=== PATIENT | female | born 2000 | race Caucasian/White ===

== ENCOUNTER 2025-08-29 10:21 | Outpatient (OUT) | payer BC, MEDICAID, SELFPAY ==
--- OUTSIDE RECORDS SUMMARY | 2025-08-25 05:29 | XMS_ITS | Continuity of Care Document ---
Author Organization [facility] Address [address] [place] [address] Phone Care Team Providers Care Mobile Device Developer Name Role Phone Carrillomilo Kurtis PIERSON Unavailable Unavailable Allergies, Adverse Reactions, Alerts Substance Reaction Status Criticality No Known Allergies Active No Inform ation Medications Medication Instructions Dosage Effective Dates (start - stop) Status Comments cephalexin 500 mg capsule 1 capsule four times daily till gone - Active levothyroxine 50 mcg tablet take 1 tablet by oral route every day for thyroid replacement - Active Procedures Procedure Date Intraoral-periapical 1st Film Bitewig-single Film Oral Hygiene Instruction Limited Oral Eval IMMUNIZATION ADMIN FLU VACCINE NO PRESERV 3 & > PREV VISIT, EST, AGE 18-39 Bp scrn perf rec interval LDL-C <100 MG/DL DIAST BP < 80 MM HG SYST BP < 130 MM HG MED LIST DOCD IN [facility] RVW MEDS BY RX/DR IN [facility] OFFICE/OUTPATIENT VISIT, EST Bp scrn perf rec interval LDL-C <100 MG/DL DIAST BP < 80 MM HG SYST BP < 130 MM HG MED LIST DOCD IN [facility] RVW MEDS BY RX/DR IN [facility] TOBACCO NON-USER OFFICE/OUTPATIENT VISIT, EST Bp scrn perf rec interval LDL-C <100 MG/DL DIAST BP < 80 MM HG SYST BP < 130 MM HG MED LIST DOCD IN [facility] RVW MEDS BY RX/DR IN [facility] TOBACCO NON-USER Pt inelig neg scrn depres OFFICE/OUTPATIENT VISIT, EST Bp scrn perf rec interval DIAST BP < 80 MM HG SYST BP < 130 MM HG MED LIST DOCD IN [facility] RVW MEDS BY RX/DR IN [facility] TOBACCO NON-USER ROUTINE VENIPUNCTURE URINE TEST OFFICE/OUTPATIENT VISIT, EST OFFICE/OUTPATIENT VISIT, EST COVID-19 Antigen Test COVID-19 Antigen Test Prophylaxis Adult Topical Application Of Fluoride Varnish Nutrit Couns For Control Of [place] [facility] [place] Oral Hygiene Instruction Low Risk TB Read TB INTRADERMAL TEST IMMUNIZATION ADMIN FLU VACCINE NO PRESERV 3 & > Covid-19 Vaccine Administration 024 Covid-19 Vaccine, 50 Mcg Moderna 12y Plu s Intraoral-complete Series (bw) Oral Hygiene Instruction Comp Oral Eval New/estab Patient 2023 Covid-19 Vaccine Administration 024 Covid-19 Vaccine, 50 Mcg Moderna 12y Plu s Advance Directives Directive Yes / No Effective Date File Name No Information Encounters Encounter Description Practice Location Reason(s) For Visit Diagnoses Date Provider Providers Copied on Encounter [facility], [address] [place] [address], [id number] , [place] tel: [phone] Dental Clinic Encounter for screening for dental disorders 5 Sayra Hull. [address], [place], [id number] , [place]. tel: [phone] [facility], [address] [place] [address], [id number] , [place] tel: [phone] [facility] No Information 5 Melecio Dudley. [address], [place], [id number] , [place]. tel: [phone] PREV VISIT, [facility], AGE 18-39 [facility], [address] [place] [address], [id number] , [place] tel: [phone] [facility] Office visit (chief complaint) Annual physical examAcute URI 0- 5 Eliezer Martin. [address] [place] [address], [id number] , [place]. tel: [phone] OFFICE/OUTPA TIENT VISIT, [facility], [address] [place] [address], [id number] , [place] tel: [phone] [facility] Office Visit (chief complaint) Body mass index [BMI] 26.0-26.9, adultHypothyroidism, unspecifiedAcute mastitis 8 5 Plank DO Nicholas. [address] [place] [address], [id number] , [place]. tel: [phone] OFFICE/OUTPA TIENT VISIT, [facility], [address] [place] [address], [id number] , [place] tel: [phone] [facility] Follow Up (chief complaint) Hypothyroidism, unspecifiedBody mass index [BMI] 26.0-26.9, adult 3 5 Plank DO Nicholas. [address], [place], [id number] , [place]. tel: [phone] [facility], [address] [place] [address], [id number] , [place] tel: [phone] [facility] No Information Sep-2 5 Plank DO Nicholas. [address], [place], [id number] , [place]. tel: [phone] OFFICE/OUTPA TIENT VISIT, [facility], [address] [place] [address], [id number] , [place] tel: [phone] [facility] Follow up (chief complaint) Body mass index [BMI] 26.0-26.9, adultFeeling off-colorHearing difficulty, unspecified lateralityVisual disturbance Sep-2 5 Plank DO Nicholas. [address] [place] [address], [id number] , [place]. tel: [phone] OFFICE/OUTPA TIENT VISIT, [facility], [address] [place] [address], [id number] , [place] tel: [phone] [facility] Problem Visit (chief complaint) Body mass index [BMI] 26.0-26.9, adultNear syncopeChest pressureLightheaded Sep- 5 Darnell Harding. [address] [place] [address], [id number], [place]. tel: [phone] OFFICE/OUTPA TIENT VISIT, [facility], [address] [place] [address], [id number] , [place] tel:+ [phone] [facility] Sick visit (chief complaint)U [place] (chief complaint) Acute URIBody mass index [BMI] 25.0-25.9, adult Aug-0 5 Americo Haque. [address] [place] [address], [id number] , [place]. tel: [phone] [facility], [address] [place] [address], [id number] , [place] tel:+ [phone] [facility] Encounter for screening for COVID-19 5 Visckim Dudley. [address], [place], [id number] , [place]. tel: [phone] [facility], [address], [place], [id number] , [place] tel: [phone] Dental [facility] [place] (chief complaint) Encounter for screening for dental disorders 5 Lazo DDS Yixue. [address] [place], [address], [place]. tel: [phone] [facility], [address], [place], [id number] , [place] tel: [phone] [facility] No Information 5 Melecio Dudley. [address], [place], [id number] , [place]. tel: [phone] [facility], [address], [place], [id number] , [place] tel: [phone] [facility] Encounter for screening for respiratory tuberculosis 5 Melecio Dudley. [address], [place], [id number] , [place]. tel: [phone] [facility], [address], [place], [id number] , [place] tel: [phone] [facility] No Information 4 Melecio Dudley. [address], [place], [id number] , [place]. tel: [phone] [facility], [address], [place], [id number] , [place] tel: [phone] Dental Clinic dn (chief complaint) Encounter for screening for dental disorders 4 Lazo DDS Yixue. [address] [place], [address], [place]. tel: [phone] [facility], [address], [place], [id number] , [place] tel: [phone] [facility] Pre employment labs (chief complaint) No Information Melecio Dudley. [address] [place] [address], [place], [place], [id number] , [place]. tel: [phone] Family History Family Member Type Diagnosis Age At Onset No Information Immunizations Vaccine Date Status Comments Fluarix/Flulaval administered Source: New Immunization Record Fluarix/Flulaval administered Source: New Immunization Record Spikevax 12y+ administered Source: New Im munization Record Spikevax 12y+ administered Source: New Im munization Record COVID-19, mRNA, LNP-S, PF, 1 00 mcg/0.5mL dose or 50 mcg/0.25mL dose administered Source: Other Regist ry COVID-19, mRNA, LNP-S, PF, 1 00 mcg/0.5mL dose or 50 mcg/0.25mL dose administered Source: Other Regist ry Hep A, ped/adol, 2 dose administered Sour ce: Other Registry HPV, quadrivalent administered Source: Ot her Registry Meningococcal MCV4O administered Source: Other Registry meningococcal B, recombinant administered Source: Other Registry Influenza, injectable, MDCK, preservative free, quadrivalent administered Source: Other Registry meningococcal MCV4P administered Source: Other Registry Hep A, ped/adol, 2 dose administered Sour ce: Other Registry HPV, quadrivalent administered Source: Ot her Registry Tdap administered Source: Other R egistry Influenza, seasonal, injectable administe red Source: Other Registry Influenza, seasonal, injectable, preservative free administered Source: Ot her Registry influenza, whole administered Source: Ot er Registry polio, unspecified formulation administer ed Source: Other Registry DTP administered Source: Other R egistry MMR administered Source: Other R egistry pneumococcal, unspecified formulation administered Source: Other Regist ry Hib, unspecified formulation administered Source: Other Registry DTP administered Source: Other R egistry varicella administered Source: Other R egistry pneumococcal conjugate PCV 7 administered Source: Other Registry MMR administered Source: Other R egistry Hib-Hep B administered Source: Other R egistry IPV administered Source: Other R egistry DTaP, unspecified formulation administere d Source: Other Registry IPV administered Source: Other R egistry Hib-Hep B administered Source: Other R egistry DTaP, unspecified formulation administere d Source: Other Registry pneumococcal conjugate PCV 7 administered Source: Other Registry IPV administered Source: Other R egistry Hib-Hep B administered Source: Other R egistry DTaP, unspecified formulation administere d Source: Other Registry pneumococcal conjugate PCV 7 administered Source: Other Registry Payers Payer name Insurance type Covered green party ID Authormarcea tran(s) D [facility] CI [id number] D Hum[employer] Medicaid Dentaquest [facility] [id number] D Medicaid Wrap - [facility] [id number] Humana Medicaid [facility] [id number] [id number] Medicaid Wrap - [facility] [id number] [place] [id number] Self Pay Cap 09 [id number] Social History Type Description Quantity Date Captured Comments Alcohol Use Details No Caffeine Use Details soda Tobacco Use Status Current non-smoker Smoking Status Never smoker Sex Female Sexual Orientation Straight or heterosexual February Gender Identity Female Vital Signs Date / Time: Height Weight BMI Pulse Rate Blood Pressure Temperature Respiratory Rate Body Surface Area Head Circumference Head Circ. Percentile Wt./Fly. Percentile BMI percentile Pulse Ox Inhaled Ox 10:56 AM 65.00 in Chief Complaint And Reason For Visit No Information Reason For Referral Reason For Referral No Information Plan Of Treatment Date Type Action Status Goal Tdap Vaccine. Due on 2024 due Goal Lipid panel. Due on due Goal Unhealthy drug use screening . Due on due Goal Influenza vaccine. Due on Oc due Goal Depression screening. Due on due Goal PRAPARE ASSESSMENT. Due on N due Goal RLP. Due on due Goal Hepatitis C screening. Due o n due Goal PAP. Due on due Goal Tdap due Goal Hepatitis C screening. Due o n due Goal Tdap due Goal Depression screening. Due on due Goal PAP. Due on due Goal Lipid panel. Due on due Goal Influenza vaccine. Due on Oc due Goal RLP. Due on due Goal Tdap Vaccine. Due on 2024 due Goal PRAPARE ASSESSMENT. Due on O due Goal Unhealthy drug use screening . Due on due Goal Depression screening. Due on due Goal Unhealthy drug use screening . Due on due Goal Tdap Vaccine. Due on 2024 due Goal Tdap due Goal Hepatitis C screening. Due o n due Goal PAP. Due on due Goal Lipid panel. Due on due Goal Influenza vaccine. Due on Oc due Goal RLP. Due on due Goal PRAPARE ASSESSMENT. Due on O due Goal Depression screening. Due on due Goal RLP. Due on due Goal Influenza vaccine. Due on Oc due Goal Unhealthy drug use screening . Due on due Goal PAP. Due on due Goal Hepatitis C screening. Due o n due Goal Tdap due Goal Lipid panel. Due on due Goal Tdap Vaccine. Due on 2024 due Goal PRAPARE ASSESSMENT. Due on O due Goal Lifestyle education regardin g diet completed Goal PAP. Due on due Goal Lipid panel. Due on due Goal Depression screening. Due on due Goal Unhealthy drug use screening . Due on due Goal Influenza vaccine. Due on Oc due Goal Tdap Vaccine. Due on 2024 due Goal Hepatitis C screening. Due o n due Goal RLP. Due on due Goal Tdap due Goal PRAPARE ASSESSMENT. Due on O due Goal Lifestyle education regardin g diet completed Goal PRAPARE ASSESSMENT. Due on S due Goal Lipid panel. Due on due Goal Depression screening. Due on due Goal Influenza vaccine. Due on Oc due Goal PAP. Due on due Goal Hepatitis C screening. Due o n due Goal Unhealthy drug use screening . Due on due Goal Tdap Vaccine. Due on 2024 due Goal RLP. Due on due Goal Tdap due Goal Lifestyle education regardin g diet completed Goal Tdap due Goal Unhealthy drug use screening . Due on due Goal Tdap Vaccine. Due on 2024 due Goal Influenza vaccine. Due on Oc due Goal PAP. Due on due Goal RLP. Due on due Goal Depression screening. Due on due Goal Hepatitis C screening. Due o n due Goal PRAPARE ASSESSMENT. Due on S due Goal Lifestyle education regardin g diet completed Goal Influenza vaccine. Due on Oc due Goal Tdap due Goal PAP. Due on due Goal Depression screening. Due on due Goal RLP. Due on due Goal Unhealthy drug use screening . Due on due Goal PRAPARE ASSESSMENT. Due on A due Goal Hepatitis C screening. Due o n due Goal Tdap Vaccine. Due on 2024 due Goal PAP. Due on due Goal PRAPARE ASSESSMENT. Due on A due Goal Depression screening. Due on due Goal Unhealthy drug use screening . Due on due Goal Tdap due Goal RLP. Due on due Goal Influenza vaccine. Due on Oc due Goal Tdap Vaccine. Due on 2024 due Goal Hepatitis C screening. Due o n due Goal Dietary manageme nt education, guidance, and counseling completed Goal Hepatitis C screening. Due o n due Goal Tdap Vaccine. Due on 2024 due Goal Influenza vaccine. Due on Oc due Goal Tdap due Goal PAP. Due on due Goal Unhealthy drug use screening . Due on due Goal PRAPARE ASSESSMENT. Due on due Goal RLP. Due on due Goal Depression screening. Due on due Goal Unhealthy drug use screening . Due on due Goal RLP. Due on due Goal Tdap Vaccine. Due on 2024 due Goal Influenza vaccine. Due on Oc due Goal Tdap due Goal PRAPARE ASSESSMENT. Due on M due Goal Depression screening. Due on due Goal PAP. Due on due Goal Hepatitis C screening. Due o n due Goal Hepatitis C screening. Due o n due Goal Influenza vaccine. Due on Oc due Goal Unhealthy drug use screening . Due on due Goal Depression screening. Due on due Goal Tdap Vaccine. Due on 2024 due Goal PAP. Due on due Goal Tdap due Goal RLP. Due on due Goal PRAPARE ASSESSMENT. Due on A due Goal PAP. Due on due Goal Tdap Vaccine. Due on 2023 due Goal Tdap. Due on due Goal PRAPARE ASSESSMENT. Due on O due Goal Unhealthy drug use screening . Due on due Goal RLP. Due on due Goal Depression screening. Due on due Goal Hepatitis C screening. Due o n due Goal Influenza vaccine. Due on Oc due Goal Influenza vaccine. Due on Au due Goal PRAPARE ASSESSMENT. Due on A due Goal Hepatitis C screening. Due o n due Goal Unhealthy drug use screening . Due on due Goal Tdap. Due on due Goal Tdap Vaccine. Due on 2023 due Goal RLP. Due on due Goal Depression screening. Due on due Goal PAP. Due on due Goal Influenza vaccine. Due on Ma due Goal Hepatitis C screening. Due o n due Goal RLP. Due on due Goal Unhealthy drug use screening . Due on due Goal PAP. Due on due Goal Hep A. Due on du e Goal Tdap Vaccine. Due on 2023 due Goal Tdap. Due on due Goal Depression screening. Due on due Goal PRAPARE ASSESSMENT. Due on M due Appointment Ander Nicole BOOKED Appointment Ander Nicole BOOKED History Of Present Illness Encounter Date Complaint History Of Prese nt Illness Office visit Pt here today taye ramirez for insurance. Pt states does not have [employer] insurance yet, but will be doing open enrollment in August. Collected urine sample for nicotine. Voices no other issues or concerns at this time. -Tatianna.Noted above. PCP Dr. Talbot. Chronic conditions managed.Currently with URI symptoms, managing with OTC medications. 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 Has a dusky skin tone, c/o nausea, weakness, Some breast tenderness d/t trying to stop breast feeding.RWeidmanLPNsome mild bilat breast tenderness,someredness bilat. Follow Up Pt follow up key t. States I still feel lightheadedness but no passing out. I have a history of Thyroid issues in the family. [facility] Follow [facility] Pt went to ED pe r instruction of Obi but waited 5 hours and wasn't seen yet. Still feeling weak with occasional periods that feel like she is going to pass out.[facility] Problem Visit Patient states s he began to get lightheaded, clammy, and felt like fainting around 9 this morning. Patient states she feels weak and is still lightheaded. Patient checked glucose during this period and it was 70, then rechecked and it had increased. Patient is still pumping but no more than typical. Denies other concerns at this time. Patient denies any alcohol, tobacco, drug use.//Phyllis, RNglucose-134 I have reviewed all above information and agree. PCP: Dr. Pavon. Works in [employer]. Woke up feeling ok, then developed headache. Came to work. [place] very weak and like passing out. Overhead called for help at work. Vision went blurry and double vision, hearing went out, mouth went dry, had chest pressure during event [place] like someone was sitting on chest. Was SOB. Had a hard time catching breath. Lips felt weird and states could not talk after said im gonna pass out . Did not lose consciousness. Has happened before very similar presentation, but did lose consciousness at that time, about 2 years ago. Blood sugar in office was 71. Is not diabetic. Healthy. No chronic medical conditions. No Rx medications. . 7 months PP. Denies PPD and anxiety. Staying hydrated and getting enough to eat. Feels getting back to normal now. Feels super light . Feels weak. Not been sick recently. Wearing apple watch. reviewed HR today range 63-120. No cardiac hx. Not on BC. Denies anxiety, depression. Had breakfast and lunch. Has seen black stars earlier. No longer now. Not ill recently. No seizure hx. Juan Jose's mom is Bere Feliciano and both feel comfortable with taking pt to [facility] via private car. --LKastor CNPOrthostatics:3:15 laying 140/92, 64 bpm3:20 pm siting, 142/92, 62 bpm3:25 pm standing 146/84, 70 bpm Sick visit Patient presents for sick visit. Patient was tested for COVID and was negative. Symptoms started Friday, states it hasn't gotten any worse. Scratchy throat, congestion, sinus pressure - HERBERT Ching. URI The symptoms beg an 2 to 3 days ago. The symptoms have remained unchanged. The client presents with cough, fever, headache and pharyngitis. The client does not present with diarrhea, nausea or vomiting. Risk factors include sick contacts (home). The client denies any aggravating factors. The client had a response to medication(s) (decongestant). The client denies any associated symptoms. Additional information: Jaime PICKETT. MIGUEL RIVERA arline nunn Pre employment labs Pre employme nt labs and COVID19 Vaccine.DLoparoRN Functional Status Date Functional Assessmen t No Information Instructions Date Instruction Additional Infor sharlene OTC medications as d iscussedIncrease fluids and diet as tolerated. Call if symptoms worsen or do not improve as expected Take precautions to prevent spread of illness such as wash hands frequently and stay away from other healthy individuals Related to Acute URI Recommend:annual phy sical exams, sooner with concerns or problems- annual vision exam- biannual dental exams-annual womens health exam, mammogram beginning age 40- colon cancer screening beginning age 45- Related to Annual physical exam Giving encouragement to exercise Related to Body mass index [BMI] 26.0-26.9, adult Lifestyle education regarding di et Related to Body mass index [BMI] 26.0-26.9, adult Giving encouragement to exercise Related to Body mass index [BMI] 26.0-26.9, adult Lifestyle education regarding di et Related to Body mass index [BMI] 26.0-26.9, adult Giving encouragement to exercise Related to Body mass index [BMI] 26.0-26.9, adult Lifestyle education regarding di et Related to Body mass index [BMI] 26.0-26.9, adult Giving encouragement to exercise Related to Body mass index [BMI] 26.0-26.9, adult Lifestyle education regarding di et Related to Body mass index [BMI] 26.0-26.9, adult 1. Rest and hydrateP ush fluids2. Medications as instructedcontinue with OTC medications3. Follow up in 1 week if symptoms have not improved4. Seek immediate medical attention for chest pain or shortness of breath.5. Avoid smoking and or cigarette smoke6. bland well balanced diet Related to Acute URI Giving encouragement to exercise Related to Body mass index [BMI] 25.0-25.9, adult Dietary management e ducation, guidance, and counseling Related to Body mass index [BMI] 25.0-25.9, adult Assessments Type Assessment Date No Information Patient Care Teams Name Effective Dates (start - stop) Status Members No Information
--- OUTSIDE RECORDS SUMMARY | 2025-08-29 05:19 | XMS_ITS | Continuity of Care Document ---
Author Organization [facility] Address [address] [place] [address] Phone Care Team Providers Care Nutrition Helper Name Role Phone Jacinto Pavon MD Primary Care Provider Jersey Fairchild DO Attending Provider Jb Christopher DO Emergency Provider [phone] Jacinto Pavon MD Attending Provider Care Teams Patient Care Team Team Status: Active Member Role/Relationship Status Dates Jacinto Pavon MD Primary Care Provider Active Visit Care Team Team Status: Inactive Member Role/Relationship Status Dates Jacinto Pavon MD Primary Care Provider Active S tart: June 08, 2025 End: June 08, 2025Enzo Miranda ProviderActiveStart: June 08, 2025 End: June 08, 2025 Visit Care Team Team Status: Inactive Member Role/Relationship Status Dates Jacinto Pavon MD Primary Care Provider Active S tart: June 08, 2025 End: June 08, 2025Enzo Miranda ProviderActiveStart: June 08, 2025 End: June 08, 2025 Visit Care Team Team Status: Inactive Member Role/Relationship Status Dates Jacinto Pavon MD Primary Care Provider Active S tart: July 11, 2025 End: July 11, 2025Alicia Joyner ProviderActiveStart: July 11, 2025 End: July 11, 2025 Patient Care Team Team Status: Inactive Member Role/Relationship Status Dates Jacinto Pavon MD Primary Care Provider Active S tart: August 29, 2025 End: August 29, 2025Marc Naderer , MDAttending ProviderActiveStart: August 29, 2025 End: August 29, 2025 Chief Complaint and Reason for Visit Chief Complaint Admit Date M25.531 - Pain in right wrist May 1:52pm NEW NX RT WRIST PAIN SCHED AUTH APPROVED June 08, 2025 2:55pm light headed/blurred vision/heavy chest July 11, 2025 3:39pm Well Check August 29, 2025 9:37am Reason for Visit Admit Date De Quervain's tenosynovitis, right Augus t 2024 2:55pm Ganglion cyst of volar aspect of right w rist June 08, 2025 2:55pm Wrist arthropathy June 08, 2025 2: 55pm Adult hypothyroidism August 29, 2025 9:37am Annual physical exam August 29, 2025 9:37am Allergies, Adverse Reactions, Alerts Allergen Type Severity Reaction Last Updated Verified Status No Known Allergies Allergy Unknown August 29, 2025 9:44amYesActive Social History Smoking Status Status Start Date End Date Date of Observa tion Never smoked tobacco (finding) August 29, 2025 9:45am Observation Status Observation Response Date of Response Legal Sex Female (finding) Sex Assigned At [facility] 2001 Problems Active Problems Problem Diagnosis/Recorded Date Onset Date Stat De Quervain's tenosynovitis, right June 08, 2025 2 :33pm Unknown Active Migraine without aura and wi th status migrainosus, not intractable August 25, 2025 11:36am Unknown Acti ve Annual physical exam August 29, 2025 10:02am Unkno wn Active Wrist arthropathy June 28, 2025 9:49am Unknown Active Adult hypothyroidism August 29, 2025 10:02am Unkno wn Active MDD (major depressive disord er), single episode, in full remission August 25, 2025 11:36am Unknown Active Chronic rhinosinusitis August 25, 2025 11:36am Unkn own Active Ganglion cyst of volar aspec t of right wrist June 08, 2025 2:33pm Unknown Active 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 August 25, 2025 11:36am Unknown Active Inactive/Resolved Problems Problem Diagnosis/Recorded Date Onset Date Stat us Acute nasopharyngitis June 28, 2024 8:34am Unkno wn Resolved Medications Medication Status Dose Units Route Directions Qty Days Refills S tart Date Stop Date End Date Reason(s) Instructions Adherence Ondansetron 4 mg tablet,disintegrating Discontinued 4 MG PO Every 8 hours as needed June 27, 2024 11:00pmAugus2024 2:16pmLevothyroxine 50 mcg tablet Qietqb57YXGCSVgdodCawsedvu 10th, 2025 12:00amComplies with drug therapy Acetaminophen (Tylenol) 325 mg ndufliThngus550TTGWPpqle 6 hours as neededJune 07, 2025 11:00pmUnknown Immunizations Immunization Event Date Not Given Reason Dose Number Project Manager Retail Lot Number Reason(s) Given Vaccine Information Statement (VIS) Detail Administration Location COVID-19 mRNA-1273 (Moderna) November 02, [address] [id number] mRNA-1273 (Moderna)November [id number] [place] [address] Ctr Procedures Procedure Date Performed Status XR wrist RT min 3V* June 08, 2025 12:52pm co mpleted Relevant Diagnostic Tests and/or Laboratory Data Laboratory Results Test Collection Date/Time Result Date/Time Result Interpretation Reference Range Result Comment Performing Site Bedside Glucose July 11, 2025 2:55pm July 11, 2025 3:02pm 106 mg/dL Random Glucose Reference Range is dependent on time and content of last meal. Glucose of more than 200 mg/dL in a nonstressed, ambulatory subject supports the diagnosis of Diabetes Mellitus.Point of Care testing Diagnostic Imaging Reports Author Kailash Guevara Peoples HospitalAuthoredAupresbyterian kaseman hospital 2024 7:45pmReportDictated Date/TimeDictated ByStatusRadiology ReportAumountain view regional medical center2024 7:45pmFrancisca De AndaCleveland Clinic [facility] [address] [place] [address] XRay Report Signed Patient: Ander Nicole MR#: [id number] : 2000 Acct:[id number] Age/Sex: 25 / F ADM Date: 5 Loc: [facility] Room: Type: [facility] CLI Attending Dr: Jersey Fairchild DO Copies to: Jersey Fairchild DO~ Ordering Provider: Jersey Fairchild DO Date of Service: 06/08/25 XR/XR wrist RT min 3V*: M25.531 - Pain in right wrist 4 views right wrist plain film COMPARISON: None HISTORY: Right wrist pain. Mass dorsal aspect ACUTE FINDINGS: Suspected old fracture of ulnar styloid. DEGENERATIVE CHANGE: Unremarkable SOFT TISSUE FINDINGS: Dorsal soft tissue prominence. Suspected cystic changes of the lunate. Possibly degenerative JOINT EFFUSION: None POSTOP CHANGES: None BONE MINERALIZATION: Adequate XR/XR wrist RT min 3V* IMPRESSION: Dorsal degenerative changes. Soft tissue swelling dorsally. May be consideration for ganglion cyst. Can be better assessed with MRI of the wrist. Impression dictated by: Kailash Guevara M.D. 06/08/2025 7:48 PM Dictation Location: [facility] Transcribed By: [facility] 06/08/251947 Dictated By: Kailash Guevara DO 06/08/251944 Signed By: <Electronically signed by Kailash Guevara DO in OV> 06/08/251947 Vital Signs Vital Reading Result Reference Range Collection Date/Time Height 65 [in_i] June 08, 2025 2:15ywKtxnzo04.03 kgAugust 2024 2:16pmBMI (Body Mass Index)25.0 kg/x8Zzsryo 2024 2:53usUaaxvq90 [in_i]July 11, 2025 2:38ouFrcpiy06.50 kgSeptember 2024 2:49pmBody Hnvltdbygce11.2 [degF] 97.6-99.0September 2024 2:49pmHeart Rate72 /qlf24-101Xdzkhjzar 2024 2:49pmRespiratory rate18 /edf55-80Vhadpkajg 2024 2:49pmOxygen saturation by Pulse zukehsor770 %95-100September 2024 2:49pmBP Hpypxbci223 mm[Hg] 100-140September 2024 2:49pmBP Srqunukok02 mm[Hg]60-100September 2024 2:12hhGamwpk36 [in_i]August 29, 2025 9:93gtBmcggp39.20 kgNov2024 9:43amBody Egbmievqgky64.5 [degF]97.6-99.0August 29, 2025 9:43amHeart Rate76 /pia15-995BlxvrsibAugust 29, 2025 9:43amRespiratory rate20 /srh90-79YgufvrouAugust 29, 2025 9:43amOxygen saturation by Pulse axgvcoth77 %95-100August 29, 2025 9:43amBP Vvvkvduh135 mm[Hg]100-140August 29, 2025 9:43amBP Ighufhost67 mm[Hg]60-100August 29, 2025 9:43amBMI (Body Mass Index)27.9 kg/r8FivpjlmnAugust 29, 2025 9:43am Advance Directives Advance Directive Response Recorded Date/ Time Advance Directives No August 14, 2018 8:17am Insurance Providers Guarantor Ander Nicole Address [address] [address]Xlroeqi Info.Home Phone: Coverage Status Update:2025 Payer Group Member ID Coverage Type Subscriber Relationship to Subscriber Effective Date Expiration Date Heather ALLAN/BS [id number] Hina Nicole Id: [id number] [address] [facility] [address] Home Phone: Email: [email or web address] SANJANA/BS [id number] Barron Id: [id number] [address] [facility] [address] Home Phone: Email: [email or web address].[email or web address] Medicaid [id number] A Limberios Id: [id number] [address] [address] Home Phone: Self Encounters Encounter Location(s) Arrival/Admit Date Discharge/Departure Date Discharge/Departure Disposition Provider(s) Departed Clinical -Gloria Pruitt June 08, 2025 1:52pm June 08, 2025 1:53pm Discharged to home care or self care (routine discharge) Jersey Fairchild DO Departed Physician/ Provider Office Visit -[facility] June 08, 2025 2:55pm June 08, 2025 3:53pm Discharged to home care or self care (routine discharge) Jersey Fairchild DO Departed Emergency -Emergency Room July 11, 2025 3:39pm July 11, 2025 6:08pm Left against medical advice or discontinued care Departed Physician/Provider [facility] 9:37amNoveer 2024 10:06amDischarged to home care or self care (routine discharge)Jacinto Pavon MD Recent Diagnosis Onset Date Admit Date De Quervain's tenosynovitis, right Unknown June 08, 2025 2:55pm Ganglion cyst of volar aspect of right wrist Unk nown June 08, 2025 2:55pm Wrist arthropathy Unknown June 08, 2:55pm Adult hypothyroidism Unknown August 292024 9:37am Annual physical exam Unknown August 292024 9:37am Assessments Diagnosis Onset Date Resolution Status Admit Date De Quervain's tenosynovitis, right acuteAugust 2024 2:55pmGanglion cyst of volar aspect of right wristacute June 08, 2025 2:55pmWrist arthropathyacuteAugust 2024 2:55pmAdult hypothyroidismacuteNov2024 9:37amAnnual physical examacuteAugust 29, 2025 9:37am Plan of Treatment Author Jersey Fairchild [facility] HospitalAuthoredSeptember 2024 9:50amMonitor Ander presents with right wrist de Quervain's tenosynovitis. At this juncture we have discussed the findings and diagnosis as well as personally reviewed appropriate imaging and performed interpretation of related testing and examination with the patient in office today. Prior medical notes from Jacinto Pavon MD and history have been reviewed. At this time I would recommend conservative treatment including cortisone injection which she is agreeable to.risks and benefit of injection were discussed and verbal consent was obtained. Under sterile technique the patient's right first dorsal extensor compartment was injected with 1 cc of Marcaine and 1 cc of Kenalog, this was tolerated well without any adverse reaction. Band-Aid was applied to the area. Discussed use of brace during the inflammatory state. We will plan for follow-up as needed. The patient has been involved in our cooperative treatment plan and agrees to move forward with treatment at this time. Still having some arthropathy at the wrist. Discussed trial of cortisone injection both the radiocarpal and ulnocarpal. She would like to try this as well. Under technique patient's right wrist was injected into dorsal approach due to significant radiocarpal and ulnocarpal joint with a mixture of 2 cc Marcaine and 1 cc Kenalog mixed and divided evenly between the 2. She tolerated this well. Continue to monitor Patient's symptoms are likely the result of De Quervains tenosynovitis of the first dorsal compartment of the wrist. The etiology and pathologic process was discussed in length with the patient. We discussed treatment options including observation, anti- inflammatories, corticosteroid injections, and surgery. Patient wishes to proceed with cortisone injections to the first dorsal wrist compartment, radiocarpal joint, and the TFCC. Patient tolerated the injections well with no adverse reaction. Patient fitted in wrist brace. May wear brace for aggravating activities. Patient is in need of a wrist brace due to their diagnosis of De Quervains. This is needed for aid in activities of daily living by increasing safety and stability. Patient can follow up as needed. Note scribed by DEMETRICE Garcia, reviewed and amended by myself Jersey Fairchild D.O. Future Tests Future scheduled test information is unavailable Pending Tests Test Name Ordered Date Scheduled Date Comprehensive Metabolic Panel August 29 10:01am Future Visits Future appointment information is unavailable Future Procedures Procedure Name Ordered Date Scheduled Date A1C with Estimated Average Glu August 29 10:01am Complete Blood Count Auto DiffNovember 2024 10:01amLipid PanelNovember 2024 10:01amFree T4 (Free Thyroxine)August 29, 2025 10:01amThyroid Stimulating HormoneNovember 2024 10:01am Future Medications Future medication information is unavailable Patient Instructions Patient instructions are unavailable
--- OUTSIDE RECORDS SUMMARY | 2025-08-29 10:31 | XMS_ITS | Clinical Summary ---
Author Organization [facility] Address [address] [place] [address] Care Team Providers Care Lace And Textiles Restorer Name Role Phone Jacinto Pavon MD Primary Care Provider [phone] Allergies No known active allergies Medications No known medications Active Problems ProblemNoted DateDiagnosed DateADD (attention deficit disorder) without aqzcgbeovwevu52/09/2024 Assessment & Plan (02/26/2024 2:58 PM EDT): Symptoms controlled with vyvanse and continue. Migraine without aura and with status migrainosus, not wujlybowuld60/09/2024 Assessment & Plan (02/26/2024 3:03 PM EDT): EATON stable and use OTC or imitrex PRN. MDD (major depressive disorder), single episode, in full myzvuoevf42/09/2024 Assessment & Plan (02/26/2024 3:03 PM EDT): Symptoms resolved and doing well without medication. Monitor. Chronic bzkiasudgkkouc89/09/2024 Assessment & Plan (02/26/2024 3:03 PM EDT): Recently with worsening symptoms and concern of mold exposure. Advised no specific medical tests tocheck for mold exposure and would need to test environment. Symptoms should improve and resolve after changing location. Treat with prednisone and start flonase. Resolved Problems ProblemNoted DateDiagnosed DateResolved DateGAD (generalized anxiety disorder) /06/2024 Encounters DateTypeDepartmentCare VvibZkvrdekkbxn74/06/2025Telephone [facility] [address] Latosha LLANES [address] [address] Sunshine Glass LPN from Last 3 Months Family History Medical HistoryRelationNameCommentsNo Known ProblemsFatherHypertensionMother RelationNameStatusCommentsFatherAliveMotherAlive Social History Tobacco UseTypesPacks/DayYears UsedDateSmoking Tobacco: NeverSmokeless Tobacco: Never Tobacco Cessation:Counseling Given: Not Answered Alcohol UseStandard Drinks/WeekCommentsNot Currently0 (1 standard drink = 0.6 oz pure alcohol)caffeine intake : 1-2 cups per dayHumiliation, Afraid, Rape, and Kick questionnaireAnswerDate RecordedWithin the last year, have you been afraid of your partner or ex-partner?No04/14/2024Within the last year, have you been humiliated or emotionally abused in other ways by your partner or ex-partner?No 04/14/2024Within the last year, have you been kicked, hit, slapped, or otherwise physically hurt by your partner or ex-partner?No04/14/2024Within the last year, have you been raped or forced to have any kind of sexual activity by your part ner or ex-partner?No04/14/2024Social Connection and Isolation PanelAnswerDate RecordedIn a typical week, how many times do you talk on the phone with family, friends, or neighbors?More than three times a week04/14/2024How often do you get together with friends or relatives?More than three times a week04/14/2024How often do you attend anabaptism or jainism services?Never04/14/2024o you belong to any clubs or organizations such as anabaptism groups, unions, fraternal or athletic groups, or school groups?No04/14/2024How often do you attend meetings of the clubs or organizations you belong to?Never04/14/2024re you , , , , never , or living with a partner?Living with partner 04/14/2024UDIT-CAnswerDate RecordedQ1: How often do you have a drink containing alcohol?Monthly or less04/14/2024Q2: How many drinks containing alcohol do you have on a typical day when you are drinking?1 or Q3: How often do you have six or more drinks on one occasion?Never04/14/2024Overall Financial Resource Strain (CARDIA)AnswerDate RecordedHow hard is it for you to pay for the very basics like food, housing, medical care, and heating?Not hard at all 04/14/2024[facility] [place] of Occupational Health - Occupational Stress QuestionnaireAnswerDate RecordedDo you feel stress - tense, restless, nervous, or anxious, or unable to sleep at night because yourmind is troubled all the time - these days?Only a ijncaw2204/14/2024Exercise Vital SignAnswerDate Recorded On average, how many days per week do you engage in moderate to strenuous exercise (like a brisk walk)?5 days04/14/2024On average, how many minutes do you engage in exercise at this level?120 min04/14/2024Hunger Vital SignAnswerDate RecordedWithin the past 12 months, you worried that your food would run out before you got the money to buymore.Never true04/14/2024Within the past 12 months, the food you bought just didn't last and you didn't have money to get more.Never true04/14/2024RAPARE - TransportationAnswerDate RecordedIn the past 12 months, has lack of transportation kept you from medical appointments or from getting medications?No04/14/2024In the past 12 months, has lack of transportation kept you from meetings, work, or from getting things needed for daily living?No04/14/2024Housing Stability Vital SignAnswerDate RecordedIn the last 12 months, was there a time when you were not able to pay the mortgage or rent on time?No02/25/2024In the last 12 months, how many places have you lived?2 02/25/2024In the last 12 months, was there a time when you did not have a steady place to sleep or slept in ashelter (including now)?No02/25/2024Edinburgh Depression ScaleAnswerDate RecordedEdinburgh Depression Scale Wqebj297The thought of harming myself has occurred to me.Never 01/11/2025Housing Stability Vital SignAnswerDate RecordedIn the last 12 months, was there a time when you were not able to pay the mortgage or rent on time?No 04/14/2024Number of Times Moved in the Last YearNot on file04/14/2024t any time in the past 12 months, were you homeless or living in a skilled nursing (including now)? No04/14/2024EducationAnswerDate RecordedWhat is the highest level of school you have completed or the highest degree you have received?High school graduate 04/14/2024CommentsNoSex and Gender InformationValueDate RecordedSex Assigned at IzaueJnlbve43/18/2023 11:35 AM EDTLegal QypGwxfxa31/15/2023 7:25 PM EDTGender CqwektjjAdgxmu62/18/2023 11:35 AM EDTSexual OrientationNot on file OccupationIndustryJob Start DateJob End DateDental AssistantNot on fileNot on fileNot on file Last Filed Vital Signs Vital SignReadingTime TakenCommentsBlood Kkcuygug427/70001/11/2025 1:41 PM EDT Phual936802/26/2024 2:09 PM XKLCaxxpavslsz60.7 ??C (98.1 ??F)02/26/2024 2:09 PM EDTRespiratory Wwsn674002/26/2024 2:09 PM EDTOxygen Troscnqqrk74%02/26/2024 2:09 PM EDTInhaled Oxygen Concentration--Pwmtpe74.8 kg (165 lb)01/11/2025 1:41 PM EDT Rbfiok432.1 cm (5' 5 )02/26/2024 2:09 PM EDTBody Mass Index27.46002/26/2024 2:09 PM EDT Plan of Treatment DateTypeDepartmentCare Team (Latest Contact Info)Bimquzdffpn90/30/2026 10:45 AM EDTOffice Visit [facility] [address] EBRTA D [facility] [address] [place] [address] Stephanie Duran DO [address] [phone] Insurance Care Teams Team MemberRelationshipSpecialtyStart DateEnd Date Jacinto Pavon MD PCP - GeneralFamily Medicine11/10/23
--- OUTSIDE RECORDS SUMMARY | 2025-08-29 10:31 | XMS_ITS | Clinical Summary ---
Author Organization [facility] Address [address] [place], [place] [address] Care Team Providers Care Window Air Conditioner Installer Name Role Phone Jacinto Pavon MD Unavailable [phone] Allergies No known active allergies Medications MedicationSigDispense QuantityRefillsLast FilledStart DateEnd DateStatus VYVANSE 50 mg capsule TAKE 1 (ONE) CAPSULE BY MOUTH DAILY03/18/2023ctive SUMAtriptan (IMITREX) 6 mg/0.5 mL kit GIVE 1 INJECTION SUBQ AT ONSET OF HEADACHE MAY REPEAT AFTER 1 HOUR. MAX OF 2 INJ. PER 24 HOURS03/24/2023ctive topiramate (TOPAMAX) 25 mg tablet Take 1 tablet by mouth every 12 hours 6am/6pm.03/24/2023ctive Ethinyl Estradiol-Norelgestrom (XULANE) 150-35 mcg/24 hr patch 05/11/2023ctive Immunizations ImmunizationAdministration DatesNext DueHaemophilus influenzae b (Hib) vaccine, unspecified zokdmksilas75/27/2003Haemophilus influenzae b-hepatitis B (Hib-HepB) vaccine (COMVAX)01/12/2003,2002,2002diphtheria tetanus pertussis (DTP) xvjfuwi6204/04/2006,08/15/2003diphtheria tetanus pertussis (DTaP) vaccine, unspecified jhfnxitubvv2002,2002,2002hepatitis A (HepA) vaccine, 2-dose series, ped/adol (HAVRIX-PEDS, VAQTA-PEDS)06/22/2020,05/17/2015 human papillomavirus (HPV4) vaccine, quadrivalent (GARDASIL)06/22/2020, 05/17/2015influenza (IIV3) vaccine, trivalent (AFLURIA, FLULAVAL, FLUVIRIN, FLUZONE)08/11/2014,09/10/2013influenza (IIV3) vaccine, trivalent, PF (AFLURIA, FLUARIX, FLULAVAL, FLUVIRIN, FLUZONE)08/11/2012influenza (ccIIV4) vaccine, age 6+ mo, quadrivalent, PF (FLUCELVAX)12/27/2019influenza vaccine, whole virus 07/27/2011measles mumps rubella (MMR) vaccine (M-M-R II, PRIORIX)04/04/2006, 04/04/2003meningococcal (MenACWY-CRM) vaccine, quadrivalent (MENVEO)06/22/2020 meningococcal (MenACWY-D) vaccine, quadrivalent (MENACTRA)05/17/2015 meningococcal B (MenB-FHbp) vaccine (TRUMENBA)06/22/2020pneumococcal (PCV7) vaccine, 7 valent (PREVNAR 7)04/04/2003,2002,2002pneumococcal vaccine, unspecified pjqkehloyoy57/27/2003poliovirus (IPV) vaccine, inactivated (IPOL)2002,2002,2002poliovirus vaccine, unspecified qoktbkkfxge61/16/2006tetanus diphtheria pertussis (Tdap) vaccine, age 7+ yr (ADACEL, BOOSTRIX)05/17/2015varicella (MEME) vaccine (VARIVAX)04/04/2003 Social History Tobacco UseTypesPacks/DayYears UsedDateSmoking Tobacco: NeverSmokeless Tobacco: Never Tobacco Cessation:Counseling Given: Not Answered Alcohol UseStandard Drinks/WeekCommentsYes0 (1 standard drink = 0.6 oz pure alcohol)occasionallyArea Deprivation IndexAnswerDate RecordedNational Score (1- 100), lower number is lower exdv034906/10/2023State Score (1-10), lower number is lower boht7343Data from: https://www.neighborhoodatlas.[facility].edu/. Last address used for zkxjxejxftx[address]/10/2023CommentsNoSex and Gender InformationValue Date RecordedSex Assigned at BirthNot on fileLegal DkbYkalga71/24/2017 12:16 PM EDTGender IdentityNot on fileSexual OrientationNot on file Plan of Treatment Health MaintenanceDue DateLast DoneCommentsPeds To Adult Transition Initial Aovblmrqai09/15/2014Peds To Adult Transition Annual Pbiluuenhu83/15/2016Anxiety Uvzkhhjii21/15/2020Chlamydia Screening (18-24)2020Depression Screening 2020GC (Gonorrhea) Screening (18-)2020HIV Huqszjzfi11/15/2020 Hepatitis C Giiqbkyde77/15/2020Meningococcal B Vaccine (2 of 2 - Trumenba SCDM 2-dose series)/12/2019Cervical Cancer Alxsqjxvq24/15/2023 DTaP,Tdap,Td Vaccine (7 - Td or Tdap)507/, 04/04/2006, 08/15/2003, Additional history existsCovid-19 Vaccine ( season) /08/2021, 11/02/2020Influenza Vaccine (#1)/06/2020, 08/11/2014, 09/10/2013, Additional history existsHepatitis B VaccineCompleted 01/12/2003, 2002, 2002HPV WgfmgdlHmoaxvsir16/03/2020, 05/17/2015 Insurance Care Teams Team MemberRelationshipSpecialtyStart DateEnd Date Jacinto Pavon MD [address] [place] [address] ReferringCandler County Hospital03/26/23
--- OUTSIDE RECORDS SUMMARY | 2025-08-29 10:31 | XMS_ITS | Clinical Summary ---
Author Organization [facility] Address [address], [address] [place] [address] Care Team Providers Care Conditioner Tumbler Operator Name Role Phone Jacinto Pavon MD Primary Care Provider + Social History Tobacco UseTypesPacks/DayYears UsedDateSmoking Tobacco: Never Assessed CommentsUnknownSex and Gender InformationValueDate RecordedSex Assigned at Not on fileLegal EdpOvqvry39/23/2017 1:20 PM EDTGender IdentityNot on fileSexual OrientationNot on file Plan of Treatment Not on file Insurance * Guarantor: Calvin NICOLE TypeRelation to PatientDate of BirthPhone Billing AddressPersonal/WigjibLpqxxg45/21/1972 [address] [phone] Care Teams Team MemberRelationshipSpecialtyStart DateEnd Date Jacinto Pavon MD PCP - GeneralFamily Crhndnyx19/23/17
--- OUTSIDE RECORDS SUMMARY | 2025-08-29 10:31 | XMS_ITS | Clinical Summary ---
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 120 Each Active magnesium oxide (MAG OX) 400 MG TABS tablet Take 1 Tab (400 mg) by mouth daily 60 Tab Active AMOXICILLIN PO Take by mouthActive Active Problems ProblemNoted DateDiagnosed DatePersonal history of traumatic brain injury 02/15/2016Neurocognitive /28/7403Vcqqyybqfe43/12/2016Personal history of multiple ggtclrlczup50/12/2016Cervical gqxvwc3910/31/2015Cognitive and behavioral izywmys2910/31/2015Acute post-traumatic headache, not intractable [G44.319]10/31/2015Vestibular oxaokqmzaco38/12/2016 Resolved Problems ProblemNoted DateDiagnosed DateResolved DateConvergence foffxgyrytsya43/12/2016 12/27/2015Sleep pxhdmlzzfqi00 Family History Medical HistoryRelationCommentsNo known problemsFatherAutoimmune ThyroidMaternal GrandfatherCancerMaternal GrandfatherDiabetesMaternal Grandfather Gastroesophageal refluxMaternal GrandfatherHypertensionMaternal Grandfather Autoimmune ThyroidMaternal GrandmotherDiabetesMaternal GrandmotherHypertension Maternal GrandmotherNo known problemsMotherRelationStatusCommentsFatherAlive Maternal GrandfatherAliveMaternal GrandmotherAliveMotherAlive Social History Tobacco UseTypesPacks/DayYears UsedDateSmoking Tobacco: Passive Smoke Exposure - Never SmokerAlcohol UseStandard Drinks/WeekCommentsNot Asked0 (1 standard drink = 0.6 oz pure alcohol)CommentsNoSex and Gender InformationValueDate RecordedSex Assigned at BirthNot on fileLegal IpnBhezou66/28/2013 8:33 AM EDT Gender IdentityNot on fileSexual OrientationNot on file Last Filed Vital Signs Vital SignReadingTime TakenCommentsBlood Gcnoipxa279/60012/27/2015 11:34 AM EST Rjcki2603/09/2016 11:34 AM ESTTemperature--Respiratory Yubf035011/16/2015 11:36 AM ESTOxygen Saturation--Inhaled Oxygen Concentration--Cglbkf28.2 kg (112 lb 14 oz)12/27/2015 11:34 AM SWDAwlcvx536.3 cm (5' 3.5 )12/27/2015 11:34 AM ESTBody Mass Index19.68012/27/2015 11:34 AM EST Plan of Treatment Health MaintenanceDue DateLast DoneCommentsMMR (1 of 1 - Standard series) 2003Tetanus Diphtheria and Pertussis Vaccines (1 - Tdap)2009 Varicella (1 of 2 - 13+ 2-dose series)2015HPV (1 - 3-dose series) 2017MenB (1 of 2 - MenB 2-Dose Series Bexsero)2018Hepatitis B (1 of 3 - 19+ 3-dose series)1COVID-19 ( - season)2025FLU (#1) 06/20/2025HIBAged OutNo longer eligible based on patient's age to complete this topicHepatitis AAged OutNo longer eligible based on patient's age to complete this topicMenACWYAged OutNo longer eligible based on patient's age to complete this topicNirsevimabAged OutNo longer eligible based on patient's age to complete this topicPneumococcalAged OutNo longer eligible based on patient's age to complete this topicPolioAged OutNo longer eligible based on patient's age to complete this topicRotavirusAged OutNo longer eligible based on patient's age to complete this topic Insurance Care Teams Team MemberRelationshipSpecialtyStart DateEnd Date Yelena Lantigua MD PCP - MbttqvxAvvrgywude98/11/15
[2025-08-29 11:03] LABS: Hematocrit 40.6 % (36.0-48.0); Hemoglobin 13.6 g/dL (12.0-16.0); Immature Granulocytes Abs Auto 0.03 10^3/uL (0.00-0.03); Immature Granulocytes Pct Auto 0.3 % (0.0-0.5); Lymphocytes Absolute Auto 1.8 10^3/uL (1.2-3.8); Mean Corpuscular HGB Conc 33.5 g/dL (29.9-35.2); Mean Corpuscular Hemoglobin 29.6 pg (26.7-34.0); Mean Corpuscular Volume 88.5 fL (81.0-99.0); Platelet Count 276 10^3/uL (150-450); Red Blood Count 4.59 10^6/uL (4.20-5.40); White Blood Count 8.8 10^3/uL (4.0-11.0)
[2025-08-29 12:27] LABS: Alanine Aminotransferase 26 U/L (14-59); Albumin Globulin Ratio 1.0; Albumin Level 3.6 g/dL (3.4-5.0); Alkaline Phosphatase 121 U/L (46-116); Anion Gap 12.1; Aspartate Amino Transferase 13 U/L (15-37); Blood Urea Nitrogen 14.0 mg/dL (7.0-18.0); Calcium 9.0 mg/dL (8.5-10.1); Carbon Dioxide 28.8 mmol/L (21.0-32.0); Chloride 105 mmol/L (98-107); Cholesterol 143 mg/dL (<=200); Estimated GFR (African America >60 (>=60 mL/min/1.73m^2); Estimated GFR (Non-African Ame >60 (>=60 mL/min/1.73m^2); Globulin 3.5 g/dL; Glucose 75 mg/dL (74-106); HDL Cholesterol 57 mg/dL (40-60); Potassium 3.9 mmol/L (3.5-5.1); Sodium 142 mmol/L (136-145); Thyroid Stimulating Hormone 6.709 uIU/mL (0.358-3.740); Total Protein 7.1 g/dL (6.4-8.2); Triglycerides 54 mg/dL (<=150); VLDL CHOLESTEROL 10.8 mg/dL
== END 2025-08-29 10:22 | disposition home or self-care (01) ==
LOC: LAB 10:28
PROVIDERS: PCP Family Medicine; Visit Provider Family Medicine
DX: Z00.00 Encounter for general adult medical examination without abnormal findings (principal); E03.9 Hypothyroidism, unspecified
CPT/HCPCS: 36415; 80053; 80061; 83036; 84439; 84443; 85025